=== PATIENT | female | born 1990 | race Caucasian/White ===

== ENCOUNTER 2022-06-19 18:22 | Emergency (ER) | payer OTHER ==
[2022-06-19 18:46] VITALS: BP 112/73; PULSE 90; RESP 18; TEMP 98.7; BMI 30.7
[2022-06-19] MEDS ORDERED: METHOCARBAMOL 500 MG TABLET PO ONE (19:22)
[2022-06-19] MEDS ORDERED: LIDOCAINE 5% TOPICAL PATCH TP ONE (19:22)
[2022-06-19] MEDS ORDERED: KETOROLAC TROMETHAMINE 30 MG/1 ML VIAL IM ONE (19:22)
[2022-06-19] MEDS ORDERED: KETOROLAC TROMETHAMINE 30 MG/1 ML VIAL ONE (19:25)
[2022-06-19] MEDS ORDERED: METHOCARBAMOL 500 MG TABLET ONE (19:25)
[2022-06-19] MEDS ORDERED: LIDOCAINE 5% TOPICAL PATCH ONE (19:25)
[2022-06-19] MEDS ORDERED: LIDOCAINE PATCH REMOVAL MC SCH (22:00)
== END 2022-06-19 20:32 | disposition home or self-care (01) ==
LOC: JERFT 18:22
PROC: 3E0233Z Introduction of Anti-inflammatory into Muscle, Percutaneous Approach (ICD-10-PCS; principal; 2022-06-19)
DX: S20.212A Contusion of left front wall of thorax, initial encounter (principal); M54.2 Cervicalgia; M25.552 Pain in left hip; V43.52XA Car driver injured in collision with other type car in traffic accident, initial encounter
CPT/HCPCS: 71046-TC-FY; 93005; 93010; 99284-25

== ENCOUNTER 2023-04-29 18:03 | Emergency (ER) | payer OTHER ==
[2023-04-29 18:30] VITALS: BP 125/87; PULSE 78; RESP 18; TEMP 98.7; BMI 33.0
[2023-04-29] MEDS ORDERED: KETOROLAC TROMETHAMINE 30 MG/1 ML VIAL IM ONE (19:05)
[2023-04-29] MEDS ORDERED: KETOROLAC TROMETHAMINE 30 MG/1 ML VIAL ONE (20:01)
== END 2023-04-29 21:00 | disposition home or self-care (01) ==
LOC: JERFT 18:03
PROC: 3E0233Z Introduction of Anti-inflammatory into Muscle, Percutaneous Approach (ICD-10-PCS; principal; 2023-04-29)
DX: M54.6 Pain in thoracic spine (principal); R51.9 Headache, unspecified; M54.2 Cervicalgia; R22.0 Localized swelling, mass and lump, head; S00.81XA Abrasion of other part of head, initial encounter; Y04.0XXA Assault by unarmed brawl or fight, initial encounter
CPT/HCPCS: 70450-TC; 99284-25